=== PATIENT | female | born 1995 | race Caucasian/White ===

== ENCOUNTER → 2017-11-04 | Outpatient (CLI) | payer OTHER ==
--- NOTE | 2017-11-04 16:33 | RADIOLOGY IMAGING REPORT ---
FACILITY: [facility] - [place] PATIENT NAME: Mariaa Maynard : 1995 MR: [id number] V: [id number] EXAM DATE: ORDERING PHYSICIAN: GAUTAM MADDOX TECHNOLOGIST: Location: [facility] - [place] Patient: Mariaa Maynard : 1995 Visit/Account:[id number] Date of Sevice: 11/04/2017 EXAMINATION: Transvaginal pelvic ultrasound with duplex Doppler evaluation 11/04/2017 1:30 PM HISTORY: Right ovarian enlargement.; LMP: 10/19/2017 COMPARISON STUDIES: 06/18/2015 FINDINGS: Initial transabdominal imaging was done through a full bladder. The bladder was emptied with transva ginal imaging performed. Uterus: 7.9 x 3.1 x 4.8 cm. Uterus is anteflexed with the post void transvaginal imaging. Myometrium: negative Endometrium: Negative. 3 mm thickness. Cervix: negative Ovaries: right ovary 2.7 x 1.8 x 1.5 cm, left ovary 2.7 x 1.7 x 1.4 cm, both ovaries have small funct ional appearing follicles, with the largest on the left 1.4 cm. However, the ovaries are without sig nificant enlargement or increased central stroma to indicate PCOS. Blood flow is documented in each ovary by Doppler ultrasound. Adnexa: negative Free pelvic fluid: Minimal anechoic fluid, well within physiologic normal range. IMPRESSION: 1. Physiologic appearing follicles in both ovaries. Largest is on the left. 2. Otherwise unremarkable study. Report Dictated By: Rey Hodge MD at 11/04/2017 4:26 PM Report E-Signed By: Rey Hodge MD at 11/04/2017 4:30 PM WSN:[id number]
== END ==
LOC: US 02:09
PROVIDERS: ATTEND Family Medicine
DX: N83.9 Noninflammatory disorder of ovary, fallopian tube and broad ligament, unspecified (principal)
CPT/HCPCS: 76856

== ENCOUNTER 2018-09-20 11:21 | Emergency (ER) | payer BC, OTHER ==
[~2018-09-20 11:21] MED LIST: ESCI20TA38 PO; L-NO1TBD6 PO; LEVO1TAB31 PO
--- NOTE | 2018-09-20 11:25 | ER Report ---
History and Physical Time Seen By MD: 11:22 HPI/ROS CHIEF COMPLAINT: Shortness of breath HISTORY OF PRESENT ILLNESS: Patient is a 23-year-old female with no contributory past medical history who presents emergency Department with complaint of fatigue for the last few weeks with exertion and some shortness of breath that seems somewhat pleuritic in nature. Patient was driving back to [place] from [place] when she started to feel dizzy and had some dry heaves, and also some shortness of breath. She was seen by her primary care provider here in [place] earlier this week and had some blood work done that was "normal" we do not have access to. Patient does take Lexapro as well as control. She admits to some abdominal surgery in the remote past but nothing recent. REVIEW OF SYSTEMS: Constitutional: No fever, no chills. Eyes: No discharge. ENT: No sore throat. Cardiovascular: Pleuritic chest pain, no palpitations Respiratory: Shortness of breath Gastrointestinal: No abdominal pain, no vomiting. Neurological: No headache. Allergies: Coded Allergies: No Known Drug Allergies (Unverified , 12/15/17) Home Meds Active Scripts F-Fcukvkf-Tws Estr/Ethin Estra (SEASONIQUE 0.15-0.03-0.01 TAB) 1 Each Tbdspk.3mo, 1 EACH PO DAILY, #1 PACK 4 Refills Prov:ALAN DAMON MD 12/15/17 Reported Medications Escitalopram Oxalate (LEXAPRO) 20 Mg Tablet, 10 MG PO QDAY, TAB 12/15/17 Levonorgestrel-Eth Estradiol (AVIANE) 1 Each Tablet, 1 EACH PO 12/15/17 Past Medical/Surgical History Noncontributory Smoking Status: Never Smoker Constitutional Vital Sign - Last 24 Hours 09/20/18 09/20/18 09/20/18 09/20/18 11:23 11:26 12:12 12:30 Temp 97.9 Pulse 90 Resp 28 B/P (MAP) 133/90 (104) 133/90 92/74 (80) 105/78 (87) Pulse Ox 96 O2 Delivery Room Air 09/20/18 12:51 Pulse 69 Pulse Ox 92 Physical Exam General/Constitutional: Patient is awake, alert, nontoxic and in no acute respiratory distress. Head: Normocephalic and atraumatic. Eyes: Conjunctival clear, Tympanic membranes are clear with normal landmarks and light reflex. Nares: No rhinorrhea or bleeding. Turbinates are pink and moist. Oropharyngeal: Mucous membranes are moist. There is no pharyngeal erythema or exudate. There are no palatal petechiae. Uvula is midline and symmetrical. Neck: Supple, no adenopathy. Cardiovascular: Heart is regular rate and rhythm without audible murmurs, rubs or gallops. Pulmonary: Lungs are clear to auscultation bilaterally. There are no wheezes, rales, or rhonchi. Chest rise is symmetrical Abdomen: Soft, nontender, no guarding or peritoneal signs. Extremities: No gross deformities, No peripheral cyanosis. Able to move all 4 extremities. Neuro: Alert and oriented X3, Skin: No rashes, skin is warm dry and well perfused. Medical Decision Making Data Points Result Diagram: 09/20/18 1209 09/20/18 1209 Laboratory Hematology Test 09/20/18 12:09 Red Blood Count 5.07 M/uL (4.17-5.56) Mean Corpuscular Volume 93.3 fL (80.0-96.0) Mean Corpuscular Hemoglobin 32.4 pg (26.0-33.0) Mean Corpuscular Hemoglobin Concent 34.7 g/dL (32.0-36.0) Red Cell Distribution Width 12.7 % (11.5-14.5) Mean Platelet Volume 8.0 fL (7.2-11.1) Neutrophils (%) (Auto) 62.3 % (39.4-72.5) Lymphocytes (%) (Auto) 28.3 % (17.6-49.6) Monocytes (%) (Auto) 6.1 % (4.1-12.4) Eosinophils (%) (Auto) 2.0 % (0.4-6.7) Basophils (%) (Auto) 1.3 % (0.3-1.4) Nucleated RBC Relative Count (auto) 0.1 /100WBC Neutrophils # (Auto) 3.5 K/uL (2.0-7.4) Lymphocytes # (Auto) 1.6 K/uL (1.3-3.6) Monocytes # (Auto) 0.3 K/uL (0.3-1.0) Eosinophils # (Auto) 0.1 K/uL (0.0-0.5) Basophils # (Auto) 0.1 K/uL (0.0-0.1) Nucleated RBC Absolute Count (auto) 0.00 K/uL Peripheral Blood Smear No Y/N Prothrombin Time 13.3 seconds (12.0-14.4) Prothromb Time International Ratio 1.01 Activated Partial Thromboplast Time 28 seconds (23-35) D-Dimer Quantitative (PE/DVT) 0.44 ug/ml (0-0.50) Sodium Level 140 mmol/L (137-145) Potassium Level 3.8 mmol/L (3.5-5.0) Chloride Level 104 mmol/L (98-107) Carbon Dioxide Level 24 mmol/L (22-31) Blood Urea Nitrogen 16 mg/dl (7-18) Creatinine 0.80 mg/dl (0.52-1.04) Glomerular Filtration Rate Calc > 60.0 Random Glucose 87 mg/dl (75-110) Calcium Level 9.7 mg/dl (8.4-10.2) Total Bilirubin 1.3 mg/dl (0.2-1.3) Aspartate Amino Transf (AST/SGOT) 41 U/L (0-35) Alanine Aminotransferase (ALT/SGPT) 30 U/L (0-56) Alkaline Phosphatase 60 U/L (0-126) Troponin I < 0.012 ng/ml Total Protein 8.4 g/dl (6.3-8.2) Albumin 4.7 g/dl (3.5-5.0) Chemistry Test 09/20/18 12:09 White Blood Count 5.7 k/uL (4.5-11.0) Red Blood Count 5.07 M/uL (4.17-5.56) Hemoglobin 16.4 g/dL (12.0-16.0) Hematocrit 47.3 % (34.0-47.0) Mean Corpuscular Volume 93.3 fL (80.0-96.0) Mean Corpuscular Hemoglobin 32.4 pg (26.0-33.0) Mean Corpuscular Hemoglobin Concent 34.7 g/dL (32.0-36.0) Red Cell Distribution Width 12.7 % (11.5-14.5) Platelet Count 230 K/uL (150-450) Mean Platelet Volume 8.0 fL (7.2-11.1) Neutrophils (%) (Auto) 62.3 % (39.4-72.5) Lymphocytes (%) (Auto) 28.3 % (17.6-49.6) Monocytes (%) (Auto) 6.1 % (4.1-12.4) Eosinophils (%) (Auto) 2.0 % (0.4-6.7) Basophils (%) (Auto) 1.3 % (0.3-1.4) Nucleated RBC Relative Count (auto) 0.1 /100WBC Neutrophils # (Auto) 3.5 K/uL (2.0-7.4) Lymphocytes # (Auto) 1.6 K/uL (1.3-3.6) Monocytes # (Auto) 0.3 K/uL (0.3-1.0) Eosinophils # (Auto) 0.1 K/uL (0.0-0.5) Basophils # (Auto) 0.1 K/uL (0.0-0.1) Nucleated RBC Absolute Count (auto) 0.00 K/uL Peripheral Blood Smear No Y/N Prothrombin Time 13.3 seconds (12.0-14.4) Prothromb Time International Ratio 1.01 Activated Partial Thromboplast Time 28 seconds (23-35) D-Dimer Quantitative (PE/DVT) 0.44 ug/ml (0-0.50) Glomerular Filtration Rate Calc > 60.0 Calcium Level 9.7 mg/dl (8.4-10.2) Total Bilirubin 1.3 mg/dl (0.2-1.3) Aspartate Amino Transf (AST/SGOT) 41 U/L (0-35) Alanine Aminotransferase (ALT/SGPT) 30 U/L (0-56) Alkaline Phosphatase 60 U/L (0-126) Troponin I < 0.012 ng/ml Total Protein 8.4 g/dl (6.3-8.2) Albumin 4.7 g/dl (3.5-5.0) Coagulation Test 09/20/18 12:09 Prothrombin Time 13.3 seconds Prothromb Time International Ratio 1.01 Activated Partial Thromboplast Time 28 seconds D-Dimer Quantitative (PE/DVT) 0.44 ug/ml EKG/Imaging EKG Interpretation EKG shows normal sinus rhythm with sinus arrhythmia ventricular rate of 69 bpm Monitor Interpretation: Normal Sinus Rhythm Imaging FACILITY: [facility] - [place] PATIENT NAME: Mariaa Maynard : 1995 MR: [id number] V: [id number] EXAM DATE: ORDERING PHYSICIAN: KATIE YIP TECHNOLOGIST: Location: [facility] - [place] Patient: Mariaa Maynard : 1995 Visit/Account:[id number] Date of Sevice: 09/20/2018 CHEST PA LAT INDICATION: sob COMPARISON: None available FINDINGS: Heart size within normal limits. There is no focal infiltrate or lobar consolidation. There is no pneumothorax or pleural effusion. IMPRESSION: 1. No acute cardiopulmonary process. Report Dictated By: Jonathan Garcia at 09/20/2018 1:20 PM Report E-Signed By: Jonathan Garcia at 09/20/2018 1:21 PM WSN:[email or web address] ED Course/Re-evaluation ED Course 09/20/2018 12:00:44 pm perform cardiac workup including troponin and screening d-dimer and EKG. Decision to Disposition Date: Sep 20, 2018 Decision to Disposition Time: 13:36 Depart Departure Latest Vital Signs Vital Signs Date Time Temp Pulse Resp B/P (MAP) Pulse Ox O2 Delivery O2 Flow Rate FiO2 09/20/18 12:51 69 92 09/20/18 12:30 105/78 (87) 09/20/18 11:26 97.9 28 Room Air Impression: Primary Impression: Chest pain Condition: Improved Disposition: HOME OR SELF-CARE Referrals: GAUTAM MADDOX DO 2 Weeks for recheck of symptoms Departure Forms: ER Transition Record, Medications Reconciliation, Off Work/School Form, School or Work Release?: Work Number of days to be released: 1 Patient Portal Information Patient Instructions: Noncardiac Chest Pain (DC) Problem Qualifiers Primary Impression: Chest pain Chest pain type: chest pain on breathing Qualified Codes: R07.1 - Chest pain on breathing KATIE YIP MD Sep 20, 2018 11:25
[2018-09-20] MEDS ORDERED: ONDANSETRON 4 MG/2 ML VIAL IVP ONE (12:00)
[2018-09-20] MEDS ORDERED: NS(*) 0.9% 1000 ML BAG 1,000 ML IV ONE (12:00)
[2018-09-20 12:21] LABS: PLATELET COUNT, AUTOMATED 230 K/uL (150-450)
--- NOTE | 2018-09-20 12:32 | EKG ---
FACILITY: [facility] PATIENT NAME: ANIA HARDING : [id number] MR: [id number] V: [id number] EXAM DATE: ORDERING PHYSICIAN: KATIE YIP TECHNOLOGIST: ALFRED Test Reason : CHEST PAIN Blood Pressure : / mmHG Vent. Rate : 085 BPM Atrial Rate : 085 BPM P-R Int : 146 ms QRS Dur : 074 ms QT Int : 394 ms P-R-T Axes : 061 071 -02 degrees QTc Int : 468 ms Sinus rhythm Possible left atrial enlargement Poor R wave progression anterior leads Nonspecific ST-T findings No previous ECGs available Confirmed by ARNAUD LEROY ([id number] on 09/20/2018 2:59:05 PM Referred By: PHI Confirmed By:ARNAUD LEROY
[2018-09-20 12:34] LABS: INR 1.01
--- NOTE | 2018-09-20 13:28 | RADIOLOGY IMAGING REPORT ---
FACILITY: [facility] - [place] PATIENT NAME: Mariaa Maynard : 1995 MR: [id number] V: [id number] EXAM DATE: ORDERING PHYSICIAN: KATIE YIP TECHNOLOGIST: Location: [facility] - [place] Patient: Mariaa Maynard : 1995 Visit/Account:[id number] Date of Sevice: 09/20/2018 CHEST PA LAT INDICATION: sob COMPARISON: None available FINDINGS: Heart size within normal limits. There is no focal infiltrate or lobar consolidation. There is no pneumothorax or pleural effusion. IMPRESSION: 1. No acute cardiopulmonary process. Report Dictated By: Jonathan Garcia at 09/20/2018 1:20 PM Report E-Signed By: Jonathan Garcia at 09/20/2018 1:21 PM WSN:[email or web address]
[2018-09-20 13:30] VITALS: BP 107/71
== END 2018-09-20 13:41 | disposition home or self-care (01) ==
LOC: ER 11:52
DX: R07.1 Chest pain on breathing (principal)
CPT/HCPCS: 71046; 84484; 85025; 85379; 85610; 85730; 93005; 96361; 96374; 99283; J2405; J7030; 82040; 82247; 82310; 82374; 82435; 82565; 82947; 84075; 84132; 84155; 84295; 84450; 84460; 84520

== ENCOUNTER → 2018-10-24 | Outpatient (CLI) | payer BC | LOC: RESP 10:47 | PROVIDERS: ATTEND Family Medicine | DX: G47.30 Sleep apnea, unspecified (principal) ==